=== PATIENT | male | born 1970 | race Caucasian/White ===

== ENCOUNTER 2023-09-06 15:26 | Inpatient (IN) | payer MEDICAID ==
[~2023-09-06] VITALS: Ht 167.6 cm; Wt 74.4 kg
[2023-09-06 16:13] LABS: BASOPHILS % (AUTO) 0.5 % (0.0-2.0); EOSINOPHILS % (AUTO) 0.2 % (0.0-6.0); HEMATOCRIT 31 % (39-51); HEMOGLOBIN 9.8 g/dL (13.5-17.5); LYMPHOCYTES # (AUTO) 0.4 K/uL (0.8-4.8); LYMPHOCYTES % (AUTO) 18.6 % (20.0-44.0); MEAN CORPUSCULAR HEMOGLOBIN 27 PG (26.0-33.0); MEAN CORPUSCULAR HGB CONC 32 g/dl (31.0-36.0); MEAN CORPUSCULAR VOLUME 84 fL (80-96); MONOCYTES % (AUTO) 1.1 % (2.0-12.0); NEUTROPHILS # (AUTO) 1.8 K/uL (1.8-8.9); NEUTROPHILS % (AUTO) 79.6 % (43.0-81.0); PLATELET COUNT (AUTO) 316 K/uL (150-450); RED BLOOD CELL COUNT(AUTO) 3.66 MIL/uL (4.5-6.0); RED CELL DISTRIBUTION WIDTH 16.6 % (11.5-15.0); WHITE BLOOD COUNT (AUTO) 2.2 K/uL (4.3-11.0)
[2023-09-06 16:21] LABS: CALCIUM, SERUM 9.9 mg/dL (8.5-10.1); CARBON DIOXIDE 23 mmol/L (21-32); CHLORIDE 101 mmol/L (98-107); CREATININE 1.2 mg/dL (0.6-1.3); GLUCOSE 141 mg/dL (74-106); POTASSIUM 4.3 mmol/L (3.5-5.1); SODIUM SERUM 136 mmol/L (136-145); UREA NITROGEN, BLOOD 66 mg/dL (7-18)
[2023-09-06] MEDS ORDERED: CEFEPIME 2 GM in IV D5W 50 ML IV ONE (17:00)
[2023-09-06] MEDS ORDERED: VANCOMYCIN 1 GM in IV D5W 250 ML IV ONE (17:00)
[2023-09-06] MEDS ORDERED: IV NS 0.9% 1,000 ML BAG IV ONE ×2 (17:00→18:30)
[2023-09-06] MEDS ORDERED: IOHEXOL-350 100 ML VIAL IV ONE (17:14)
[2023-09-06] MEDS ORDERED: IV NS 0.9% 250 ML IV ONE ×2 (17:15→21:30)
[2023-09-06] MEDS ORDERED: CT SWABBABLE VALVE TRANS SET 1 EA INFUS.SET MC ONE (17:15)
[2023-09-06] MEDS ORDERED: ACETAMINOPHEN 650 MG/SUPP.RECT RC ONE ×2 (17:26→18:00)
[2023-09-06 17:52] LABS: ALANINE AMINOTRANSFERASE 51 U/L (12-78); ALBUMIN 2.3 g/dL (3.4-5.0); ALKALINE PHOSPHATASE 290 U/L (46-116); ASPARTATE AMINOTRANSFERASE 51 U/L (15-37); BILIRUBIN,DIRECT 0.2 mg/dL (0.0-0.2); BILIRUBIN,TOTAL 0.2 mg/dL (0.2-1.0); TOTAL PROTEIN, SERUM 8.1 g/dL (6.4-8.2)
[2023-09-06 18:10] LABS: INR 1.17 (0.91-1.10); PARTIAL THROMBOPLASTIN TIME 25.6 SEC (24.3-34.3); PROTHROMBIN TIME 12.3 SECS (9.2-11.1)
[2023-09-06 18:11] LABS: ANISOCYTOSIS 1+; BAND % (MANUAL) 4 % (0.0-5.0); EOSINOPHILS % (MANUAL) 2 % (0-4); LYMPHOCYTES % (MANUAL) 22 % (16-48); MONOCYTES % (MANUAL) 4 % (0-11.0); NEUTROPHILS % (MANUAL) 68 (42-76); PLATELET ESTIMATE ADEQUATE; ROULEAUX 1+
[2023-09-06 18:13] LABS: LACTIC ACID 4.6 mmol/L (0.4-2.0)
[2023-09-06] MEDS ORDERED: IBUP-1957 PO (18:34)
[2023-09-06] MEDS ORDERED: BISA10SU11 RC (18:34)
[2023-09-06] MEDS ORDERED: DULO30CA2 PO (18:34)
[2023-09-06] MEDS ORDERED: ASPI-1169 PO (18:34)
[2023-09-06] MEDS ORDERED: MELA3TAB41 PO (18:34)
[2023-09-06] MEDS ORDERED: POLY17PO4 PO (18:34)
[2023-09-06] MEDS ORDERED: ASCO500T21 PO (18:34)
[2023-09-06] MEDS ORDERED: LIDO30AD10 TP (18:34)
[2023-09-06] MEDS ORDERED: GABA300C PO (18:34)
[2023-09-06] MEDS ORDERED: LOSA25TA27 PO (18:34)
[2023-09-06] MEDS ORDERED: ACET-73 PO (18:34)
[2023-09-06] MEDS ORDERED: MAGN400O6 PO (18:34)
[2023-09-06] MEDS ORDERED: FERR325T23 PO (18:34)
[2023-09-06] MEDS ORDERED: BACL10TA PO (18:34)
[2023-09-06] MEDS ORDERED: GABA-536 PO (18:34)
[2023-09-06] MEDS ORDERED: TOPI25TA49 PO (18:34)
[2023-09-06] MEDS ORDERED: AMIN30LI66 PO (18:34)
[2023-09-06] MEDS ORDERED: MULT-213 PO (18:34)
[2023-09-06] MEDS ORDERED: NUTR1PAC14 PO (18:34)
[2023-09-06] MEDS ORDERED: PANT40TA49 PO (18:34)
[2023-09-06] MEDS ORDERED: NA P133E RC (18:34)
[2023-09-06] MEDS ORDERED: MIRT-90 PO (18:34)
[2023-09-06] MEDS ORDERED: SENN-261 PO (18:34)
[2023-09-06] MEDS ORDERED: ACET-868 PO (18:34)
[2023-09-06] MEDS ORDERED: BLOO-668 IN (18:35)
[2023-09-06] MEDS ORDERED: Z GUARD REMEDY 4 OZ OINT TP PRN (19:30)
[2023-09-06] MEDS ORDERED: MAGNESIUM HYDROXIDE 30 ML UDC PO PRN ×2 (19:30→20:00)
[2023-09-06] MEDS ORDERED: ONDANSETRON HCL/PF 4 MG/2 ML VIAL IVP PRN (19:30)
[2023-09-06] MEDS ORDERED: MAG HYDROX/AL HYDROX/SIMETH 30 ML UDC PO PRN (19:30)
[2023-09-06] MEDS ORDERED: ZOLPIDEM TARTRATE 5 MG TABLET PO PRN (19:30)
[2023-09-06] MEDS ORDERED: ACETAMINOPHEN 325 MG TABLET PO PRN ×2 (19:30→20:00)
[2023-09-06 20:00] VITALS: BP 91/55; TEMP 97; O2SAT 100
[2023-09-06] MEDS ORDERED: NA PHOS,M-B/NA PHOS,DI-BA 1 EA ENEMA RC PRN (20:00)
[2023-09-06] MEDS ORDERED: BISACODYL SUPP (10 MG) 10 MG/SUPP.RECT SUPP.RECT RC PRN (20:00)
[2023-09-06] MEDS ORDERED: IBUPROFEN 400 MG TABLET PO PRN (20:00)
[2023-09-06] MEDS ORDERED: DEXTROSE 50%-WATER 50 ML DISP.SYRIN IV PRN (20:00)
[2023-09-06] MEDS: IV 1/2NS 1000 ML 1,000 ML IV PRN (20:22)
[2023-09-06] MEDS: ENOXAPARIN SODIUM 40 MG/0.4 ML DISP.SYRIN SQ SCH (20:22)
[2023-09-06 20:23] LABS: BILIRUBIN,URINE NEGATIVE (NEGATIVE); BLOOD, URINE 2+ Ery/uL (NEGATIVE); COLOR,URINE YELLOW (YELLOW); KETONES,URINE NEGATIVE (NEGATIVE); LEUKOCYTE ESTERASE ,URINE 2+ (NEGATIVE); NITRITE, URINE POSITIVE (NEGATIVE); PH,URINE 7.5 (5.0-8.0); PROTEIN,URINE 2+ mg/dl (NEGATIVE); UGLUCOSE NEGATIVE (NEGATIVE); UROBILINOGEN,URINE 0.2 EU/dL (0.2)
[2023-09-06 20:24] LABS: APPEARANCE,URINE SLIGHTLY CLOUDY (CLEAR)
[2023-09-06 20:35] LABS: ADD URINE CULTURE YES; BACTERIA,URINE 4+ /HPF (None Seen); RBC,URINE 21-50 /HPF (0-2); SQUAMOUS EPITHELIAL CELL,UR 0-2 /HPF (None Seen); WBC,URINE 21-50 /HPF (0-3)
[2023-09-06 20:36] LABS: CALCIUM OXALATE CRYSTALS,UR Few /HPF (None Seen)
[2023-09-06] MEDS: MIRTAZAPINE 15 MG TABLET PO SCH (21:59)
[2023-09-06] MEDS: GABAPENTIN 400 MG CAPSULE PO SCH (21:59)
[2023-09-06] MEDS: SENNOSIDES 8.6 MG TABLET PO SCH (21:59)
[2023-09-06] MEDS: BLOOD SUGAR DIAGNOSTIC 1 EACH STRIP VI SCH (22:13)
[2023-09-06] MEDS: *INSULIN REGULAR(HUMULIN R)HUM 100 UNIT/ML VIAL SQ PRN (22:19)
[2023-09-06] MEDS ORDERED: IV NS 0.9% 500 ML IV ONE (23:30)
[2023-09-06] MEDS ORDERED: ALBUMIN 25% 25 GM in PREMIX 1 EA IV ONE (23:30)
[2023-09-07] VITALS: BP 79/55; TEMP 98.2; O2SAT 99
[2023-09-07] MEDS ORDERED: ALBUMIN 25% 100 ML IV ONE (00:24)
[2023-09-07 04:00] VITALS: BP 119/58; TEMP 97.1; O2SAT 100
[2023-09-07] MEDS: VANCOMYCIN 0.75 GM in IV D5W 250 ML IV SCH ×2 (05:31→16:22)
[2023-09-07] MEDS: CEFEPIME 2 GM in IV D5W 100 ML IV SCH ×2 (06:13→18:01)
[2023-09-07 07:20] LABS: BASOPHILS # (AUTO) 0.1 K/uL (0.0-0.2); BASOPHILS % (AUTO) 0.2 % (0.0-2.0); HEMATOCRIT 24 % (39-51); HEMOGLOBIN 7.7 g/dL (13.5-17.5); LYMPHOCYTES # (AUTO) 2.3 K/uL (0.8-4.8); LYMPHOCYTES % (AUTO) 6.6 % (20.0-44.0); MEAN CORPUSCULAR HEMOGLOBIN 26 PG (26.0-33.0); MEAN CORPUSCULAR HGB CONC 32 g/dl (31.0-36.0); MEAN CORPUSCULAR VOLUME 83 fL (80-96); MONOCYTES # (AUTO) 1.5 K/uL (0.1-1.30); MONOCYTES % (AUTO) 4.2 % (2.0-12.0); NEUTROPHILS # (AUTO) 31.1 K/uL (1.8-8.9); PLATELET COUNT (AUTO) 254 K/uL (150-450); RED BLOOD CELL COUNT(AUTO) 2.92 MIL/uL (4.5-6.0); RED CELL DISTRIBUTION WIDTH 16.7 % (11.5-15.0)
[2023-09-07] MEDS: BLOOD SUGAR DIAGNOSTIC 1 EACH STRIP VI SCH ×4 (07:26→22:25)
[2023-09-07] MEDS: PANTOPRAZOLE 40 MG TABLET.DR PO SCH (07:26)
[2023-09-07 07:32] LABS: CALCIUM, SERUM 8.4 mg/dL (8.5-10.1); CREATININE 1.1 mg/dL (0.6-1.3); MAGNESIUM 1.6 mg/dL (1.8-2.4); PHOSPHORUS 3.6 mg/dL (2.5-4.9); POTASSIUM 3.7 mmol/L (3.5-5.1)
[2023-09-07 08:00] VITALS: BP 91/60; TEMP 98.4; O2SAT 100
[2023-09-07] MEDS: DULOXETINE HCL 30 MG CAPSULE.DR PO SCH (09:00)
[2023-09-07] MEDS: ASCORBIC ACID 500 MG TABLET PO SCH ×2 (09:00→16:22)
[2023-09-07] MEDS: MULTIVIT W/MINERALS 1 TAB TABLET PO SCH (09:00)
[2023-09-07] MEDS: FERROUS SULFATE (325 MG) 325 MG/TAB TABLET PO SCH (09:00)
[2023-09-07] MEDS: GABAPENTIN 300 MG CAPSULE PO SCH ×2 (09:00→16:22)
[2023-09-07] MEDS: ASPIRIN 81 MG TAB.CHEW PO SCH (09:00)
[2023-09-07] MEDS: LIDOCAINE 5% (PATCH) 1 EA PATCH TP SCH (09:00)
[2023-09-07] MEDS: TOPIRAMATE 25 MG TABLET PO SCH (09:00)
[2023-09-07] MEDS: BACLOFEN (10 MG) 10 MG TABLET PO SCH ×3 (09:01→16:22)
[2023-09-07] MEDS: ARGININE/GLUTAMINE/CALCIUM BMB 1 EACH POWD.PACK PO SCH ×2 (09:01→16:22)
[2023-09-07] MEDS: POLYETHYLENE GLYCOL 3350 17 GM POWD.PACK PO SCH (09:01)
[2023-09-07] MEDS: PROSOURCE / PROSTAT (PYXIS) 30 ML UDC PO SCH ×3 (09:01→16:22)
[2023-09-07 09:44] LABS: ANISOCYTOSIS 1+; BAND % (MANUAL) 6 % (0.0-5.0); LYMPHOCYTES % (MANUAL) 7 % (16-48); MONOCYTES % (MANUAL) 3 % (0-11.0); NEUTROPHILS % (MANUAL) 84 (42-76); PLATELET ESTIMATE ADEQUATE
[2023-09-07] MEDS ORDERED: MAGNESIUM OXIDE 400 MG TABLET PO ONE (10:30)
[2023-09-07 12:00] VITALS: BP 75/54; TEMP 98.5; O2SAT 100
[2023-09-07] MEDS: DAKINS QUARTER STRENGTH (0.125%) 480 ML BOTTLE TOP SCH (12:39)
[2023-09-07 16:00] VITALS: BP 80/45; TEMP 98.6; O2SAT 100
[2023-09-07] MEDS: GLUCERNA SHAKE 237 ML CAN PO SCH (16:31)
[2023-09-07] MEDS: INSULIN REGULAR, HUMAN 100 UNIT/ML 3 ML VIAL SQ PRN (17:17)
[2023-09-07 20:00] VITALS: BP 108/70; TEMP 97.8; O2SAT 99
[2023-09-07] MEDS: ENOXAPARIN SODIUM 40 MG/0.4 ML DISP.SYRIN SQ SCH (21:00)
[2023-09-07] MEDS: MIRTAZAPINE 15 MG TABLET PO SCH (21:35)
[2023-09-07] MEDS: SENNOSIDES 8.6 MG TABLET PO SCH (21:36)
[2023-09-07] MEDS: METRONIDAZOLE 500 MG TABLET PO SCH (21:36)
[2023-09-07] MEDS: GABAPENTIN 400 MG CAPSULE PO SCH (21:36)
[2023-09-07] MEDS: *INSULIN REGULAR(HUMULIN R)HUM 100 UNIT/ML VIAL SQ PRN (22:27)
[2023-09-08 04:00] VITALS: BP_SYST 119; BP_SYST 96; BP_DIAS 65; BP_DIAS 79; TEMP 97.6; TEMP 97.8; O2SAT 100
[2023-09-08] MEDS: VANCOMYCIN 0.75 GM in IV D5W 250 ML IV SCH ×2 (04:35→16:08)
[2023-09-08] MEDS: IV 1/2NS 1000 ML 1,000 ML IV PRN (04:45)
[2023-09-08] MEDS: METRONIDAZOLE 500 MG TABLET PO SCH ×3 (05:43→21:34)
[2023-09-08] MEDS: CEFEPIME 2 GM in IV D5W 100 ML IV SCH ×2 (05:43→17:16)
[2023-09-08] MEDS: BLOOD SUGAR DIAGNOSTIC 1 EACH STRIP VI SCH ×4 (07:19→22:09)
[2023-09-08] MEDS: PANTOPRAZOLE 40 MG TABLET.DR PO SCH (07:19)
[2023-09-08 08:00] VITALS: BP 109/82; TEMP 97.5; O2SAT 100
[2023-09-08 08:10] LABS: BASOPHILS # (AUTO) 0.1 K/uL (0.0-0.2); BASOPHILS % (AUTO) 0.3 % (0.0-2.0); EOSINOPHILS # (AUTO) 0.3 K/uL (0.0-0.7); EOSINOPHILS % (AUTO) 1.5 % (0.0-6.0); HEMATOCRIT 25 % (39-51); HEMOGLOBIN 7.9 g/dL (13.5-17.5); LYMPHOCYTES # (AUTO) 2.4 K/uL (0.8-4.8); LYMPHOCYTES % (AUTO) 11.3 % (20.0-44.0); MEAN CORPUSCULAR HEMOGLOBIN 26 PG (26.0-33.0); MEAN CORPUSCULAR HGB CONC 31 g/dl (31.0-36.0); MEAN CORPUSCULAR VOLUME 84 fL (80-96); MONOCYTES # (AUTO) 1.2 K/uL (0.1-1.30); MONOCYTES % (AUTO) 5.6 % (2.0-12.0); NEUTROPHILS # (AUTO) 17.6 K/uL (1.8-8.9); NEUTROPHILS % (AUTO) 81.3 % (43.0-81.0); PLATELET COUNT (AUTO) 242 K/uL (150-450); RED BLOOD CELL COUNT(AUTO) 3.01 MIL/uL (4.5-6.0); RED CELL DISTRIBUTION WIDTH 16.6 % (11.5-15.0); WHITE BLOOD COUNT (AUTO) 21.6 K/uL (4.3-11.0)
[2023-09-08 08:30] LABS: CALCIUM, SERUM 8.7 mg/dL (8.5-10.1); CREATININE 0.7 mg/dL (0.6-1.3); MAGNESIUM 2.1 mg/dL (1.8-2.4); PHOSPHORUS 2.9 mg/dL (2.5-4.9); POTASSIUM 3.8 mmol/L (3.5-5.1)
[2023-09-08] MEDS: GLUCERNA SHAKE 237 ML CAN PO SCH ×3 (08:49→16:19)
[2023-09-08] MEDS: GABAPENTIN 300 MG CAPSULE PO SCH ×2 (08:54→16:08)
[2023-09-08] MEDS: TOPIRAMATE 25 MG TABLET PO SCH (08:54)
[2023-09-08] MEDS: FERROUS SULFATE (325 MG) 325 MG/TAB TABLET PO SCH (08:54)
[2023-09-08] MEDS: DULOXETINE HCL 30 MG CAPSULE.DR PO SCH (08:54)
[2023-09-08] MEDS: ASCORBIC ACID 500 MG TABLET PO SCH ×2 (08:54→16:08)
[2023-09-08] MEDS: MULTIVIT W/MINERALS 1 TAB TABLET PO SCH (08:55)
[2023-09-08] MEDS: LIDOCAINE 5% (PATCH) 1 EA PATCH TP SCH (08:55)
[2023-09-08] MEDS: BACLOFEN (10 MG) 10 MG TABLET PO SCH ×3 (08:56→16:08)
[2023-09-08] MEDS: PROSOURCE / PROSTAT (PYXIS) 30 ML UDC PO SCH ×3 (08:56→16:08)
[2023-09-08] MEDS: ARGININE/GLUTAMINE/CALCIUM BMB 1 EACH POWD.PACK PO SCH ×2 (08:56→16:08)
[2023-09-08] MEDS: ASPIRIN 81 MG TAB.CHEW PO SCH (08:56)
[2023-09-08] MEDS: POLYETHYLENE GLYCOL 3350 17 GM POWD.PACK PO SCH (08:59)
[2023-09-08] MEDS: DAKINS QUARTER STRENGTH (0.125%) 480 ML BOTTLE TOP SCH (08:59)
[2023-09-08 10:59] LABS: LYMPHOCYTES % (MANUAL) 11 % (16-48); MONOCYTES % (MANUAL) 4 % (0-11.0); NEUTROPHILS % (MANUAL) 85 (42-76); PLATELET ESTIMATE ADEQUATE
[2023-09-08 12:00] VITALS: BP 107/75; TEMP 97.3; O2SAT 100
[2023-09-08] MEDS: *INSULIN REGULAR(HUMULIN R)HUM 100 UNIT/ML VIAL SQ PRN ×3 (12:23→22:10)
[2023-09-08] MEDS ORDERED: SILVER NITRATE APPLICATOR 1 EA BOX TP STA (12:54)
[2023-09-08] MEDS ORDERED: LIDOCAINE 1%-EPI 1:100,000 20 ML VIAL TP STA (12:54)
[2023-09-08 16:00] VITALS: BP 106/78; TEMP 97.9; O2SAT 100
[2023-09-08 20:00] VITALS: BP 120/85; TEMP 97.7; O2SAT 99
[2023-09-08] MEDS: SENNOSIDES 8.6 MG TABLET PO SCH (21:34)
[2023-09-08] MEDS: MIRTAZAPINE 15 MG TABLET PO SCH (21:34)
[2023-09-08] MEDS: GABAPENTIN 400 MG CAPSULE PO SCH (21:34)
[2023-09-08] MEDS: ENOXAPARIN SODIUM 40 MG/0.4 ML DISP.SYRIN SQ SCH (21:55)
[2023-09-09] VITALS: BP 129/88; TEMP 98.2; O2SAT 99
[2023-09-09] MEDS: IV 1/2NS 1000 ML 1,000 ML IV PRN ×2 (01:11→16:50)
[2023-09-09 04:00] VITALS: BP 140/92; TEMP 97.5; O2SAT 98
[2023-09-09] MEDS: VANCOMYCIN 0.75 GM in IV D5W 250 ML IV SCH ×2 (04:46→17:00)
[2023-09-09] MEDS: METRONIDAZOLE 500 MG TABLET PO SCH ×3 (05:48→21:23)
[2023-09-09 05:49] LABS: BASOPHILS # (AUTO) 0.1 K/uL (0.0-0.2); BASOPHILS % (AUTO) 0.6 % (0.0-2.0); EOSINOPHILS # (AUTO) 0.3 K/uL (0.0-0.7); EOSINOPHILS % (AUTO) 2.3 % (0.0-6.0); HEMATOCRIT 27 % (39-51); HEMOGLOBIN 8.8 g/dL (13.5-17.5); LYMPHOCYTES # (AUTO) 2.3 K/uL (0.8-4.8); LYMPHOCYTES % (AUTO) 17.7 % (20.0-44.0); MEAN CORPUSCULAR HEMOGLOBIN 27 PG (26.0-33.0); MEAN CORPUSCULAR HGB CONC 32 g/dl (31.0-36.0); MEAN CORPUSCULAR VOLUME 82 fL (80-96); MONOCYTES # (AUTO) 0.8 K/uL (0.1-1.30); NEUTROPHILS # (AUTO) 9.6 K/uL (1.8-8.9); NEUTROPHILS % (AUTO) 73.4 % (43.0-81.0); PLATELET COUNT (AUTO) 256 K/uL (150-450); RED BLOOD CELL COUNT(AUTO) 3.29 MIL/uL (4.5-6.0); RED CELL DISTRIBUTION WIDTH 15.9 % (11.5-15.0)
[2023-09-09 06:08] LABS: CALCIUM, SERUM 9.1 mg/dL (8.5-10.1); CREATININE 0.6 mg/dL (0.6-1.3); POTASSIUM 3.9 mmol/L (3.5-5.1)
[2023-09-09] MEDS: CEFEPIME 2 GM in IV D5W 100 ML IV SCH ×3 (06:19→21:23)
[2023-09-09] MEDS: PANTOPRAZOLE 40 MG TABLET.DR PO SCH (07:17)
[2023-09-09] MEDS: GLUCERNA SHAKE 237 ML CAN PO SCH ×3 (07:32→17:00)
[2023-09-09] MEDS: BLOOD SUGAR DIAGNOSTIC 1 EACH STRIP VI SCH ×4 (07:54→21:52)
[2023-09-09 08:00] VITALS: BP 117/79; TEMP 97.7; O2SAT 98
[2023-09-09] MEDS: PROSOURCE / PROSTAT (PYXIS) 30 ML UDC PO SCH ×3 (08:46→16:55)
[2023-09-09] MEDS: DAKINS QUARTER STRENGTH (0.125%) 480 ML BOTTLE TOP SCH (08:46)
[2023-09-09] MEDS: ARGININE/GLUTAMINE/CALCIUM BMB 1 EACH POWD.PACK PO SCH ×2 (08:46→16:55)
[2023-09-09] MEDS: ASPIRIN 81 MG TAB.CHEW PO SCH (09:13)
[2023-09-09] MEDS: GABAPENTIN 300 MG CAPSULE PO SCH ×2 (09:13→16:54)
[2023-09-09] MEDS: BACLOFEN (10 MG) 10 MG TABLET PO SCH ×3 (09:14→16:55)
[2023-09-09] MEDS: MULTIVIT W/MINERALS 1 TAB TABLET PO SCH (09:14)
[2023-09-09] MEDS: DULOXETINE HCL 30 MG CAPSULE.DR PO SCH (09:14)
[2023-09-09] MEDS: ASCORBIC ACID 500 MG TABLET PO SCH ×2 (09:14→16:54)
[2023-09-09] MEDS: POLYETHYLENE GLYCOL 3350 17 GM POWD.PACK PO SCH (09:14)
[2023-09-09] MEDS: TOPIRAMATE 25 MG TABLET PO SCH (09:14)
[2023-09-09] MEDS: FERROUS SULFATE (325 MG) 325 MG/TAB TABLET PO SCH (09:15)
[2023-09-09] MEDS: LIDOCAINE 5% (PATCH) 1 EA PATCH TP SCH (09:15)
[2023-09-09 12:00] VITALS: BP 104/74; TEMP 97.9; O2SAT 99
[2023-09-09 16:00] VITALS: BP 111/74; TEMP 98.2; O2SAT 99
[2023-09-09] MEDS: INSULIN REGULAR, HUMAN 100 UNIT/ML 3 ML VIAL SQ PRN (17:22)
[2023-09-09 20:00] VITALS: BP 127/98; TEMP 98.2; O2SAT 99
[2023-09-09] MEDS: GABAPENTIN 400 MG CAPSULE PO SCH (21:23)
[2023-09-09] MEDS: MIRTAZAPINE 15 MG TABLET PO SCH (21:23)
[2023-09-09] MEDS: ENOXAPARIN SODIUM 40 MG/0.4 ML DISP.SYRIN SQ SCH (21:31)
[2023-09-09] MEDS: SENNOSIDES 8.6 MG TABLET PO SCH (21:32)
[2023-09-09] MEDS: *INSULIN REGULAR(HUMULIN R)HUM 100 UNIT/ML VIAL SQ PRN (21:52)
[2023-09-10] VITALS: BP 137/93; TEMP 97.5; O2SAT 100
[2023-09-10 04:00] VITALS: BP 134/96; TEMP 97.7; O2SAT 99
[2023-09-10] MEDS: METRONIDAZOLE 500 MG TABLET PO SCH ×3 (04:02→21:43)
[2023-09-10] MEDS: VANCOMYCIN 0.75 GM in IV D5W 250 ML IV SCH ×2 (04:02→16:43)
[2023-09-10] MEDS: CEFEPIME 2 GM in IV D5W 100 ML IV SCH ×3 (04:02→20:59)
[2023-09-10 07:03] LABS: BASOPHILS # (AUTO) 0.1 K/uL (0.0-0.2); EOSINOPHILS # (AUTO) 0.3 K/uL (0.0-0.7); EOSINOPHILS % (AUTO) 2.3 % (0.0-6.0); HEMATOCRIT 27 % (39-51); HEMOGLOBIN 8.8 g/dL (13.5-17.5); LYMPHOCYTES # (AUTO) 2.5 K/uL (0.8-4.8); LYMPHOCYTES % (AUTO) 23.4 % (20.0-44.0); MEAN CORPUSCULAR HEMOGLOBIN 27 PG (26.0-33.0); MEAN CORPUSCULAR HGB CONC 33 g/dl (31.0-36.0); MEAN CORPUSCULAR VOLUME 82 fL (80-96); MONOCYTES # (AUTO) 0.6 K/uL (0.1-1.30); MONOCYTES % (AUTO) 5.8 % (2.0-12.0); NEUTROPHILS # (AUTO) 7.3 K/uL (1.8-8.9); NEUTROPHILS % (AUTO) 67.5 % (43.0-81.0); PLATELET COUNT (AUTO) 297 K/uL (150-450); RED BLOOD CELL COUNT(AUTO) 3.28 MIL/uL (4.5-6.0); RED CELL DISTRIBUTION WIDTH 16.1 % (11.5-15.0); WHITE BLOOD COUNT (AUTO) 10.8 K/uL (4.3-11.0)
[2023-09-10 07:34] LABS: CREATININE 0.5 mg/dL (0.6-1.3); MAGNESIUM 1.9 mg/dL (1.8-2.4); PHOSPHORUS 1.9 mg/dL (2.5-4.9); POTASSIUM 3.7 mmol/L (3.5-5.1)
[2023-09-10] MEDS: BLOOD SUGAR DIAGNOSTIC 1 EACH STRIP VI SCH ×4 (07:34→22:00)
[2023-09-10] MEDS: PANTOPRAZOLE 40 MG TABLET.DR PO SCH (07:36)
[2023-09-10] MEDS: GLUCERNA SHAKE 237 ML CAN PO SCH ×3 (07:36→16:43)
[2023-09-10 07:48] LABS: CALCIUM, SERUM 8.6 mg/dL (8.5-10.1)
[2023-09-10 08:00] VITALS: BP 124/85; TEMP 97.7; O2SAT 100
[2023-09-10] MEDS: ARGININE/GLUTAMINE/CALCIUM BMB 1 EACH POWD.PACK PO SCH ×2 (08:15→16:41)
[2023-09-10] MEDS: PROSOURCE / PROSTAT (PYXIS) 30 ML UDC PO SCH ×3 (08:15→16:41)
[2023-09-10] MEDS: DAKINS QUARTER STRENGTH (0.125%) 480 ML BOTTLE TOP SCH (08:15)
[2023-09-10] MEDS: ASPIRIN 81 MG TAB.CHEW PO SCH (08:56)
[2023-09-10] MEDS: FERROUS SULFATE (325 MG) 325 MG/TAB TABLET PO SCH (08:56)
[2023-09-10] MEDS: POLYETHYLENE GLYCOL 3350 17 GM POWD.PACK PO SCH (08:56)
[2023-09-10] MEDS: TOPIRAMATE 25 MG TABLET PO SCH (08:57)
[2023-09-10] MEDS: DULOXETINE HCL 30 MG CAPSULE.DR PO SCH (08:57)
[2023-09-10] MEDS: BACLOFEN (10 MG) 10 MG TABLET PO SCH ×3 (08:57→16:41)
[2023-09-10] MEDS: ASCORBIC ACID 500 MG TABLET PO SCH ×2 (08:57→16:41)
[2023-09-10] MEDS: MULTIVIT W/MINERALS 1 TAB TABLET PO SCH (08:57)
[2023-09-10] MEDS: GABAPENTIN 300 MG CAPSULE PO SCH ×2 (08:57→16:41)
[2023-09-10] MEDS: LIDOCAINE 5% (PATCH) 1 EA PATCH TP SCH (08:58)
[2023-09-10 12:00] VITALS: BP 122/89; TEMP 97.5; O2SAT 99
[2023-09-10] MEDS: IV 1/2NS 1000 ML 1,000 ML IV PRN (12:42)
[2023-09-10 16:00] VITALS: BP 125/84; TEMP 97.6; O2SAT 98
[2023-09-10] MEDS: INSULIN REGULAR, HUMAN 100 UNIT/ML 3 ML VIAL SQ PRN (17:14)
[2023-09-10] MEDS ORDERED: K PHOS NEUTRAL 250 MG TABLET PO ONE (18:00)
[2023-09-10 20:00] VITALS: BP 141/90; TEMP 98.1; O2SAT 98
[2023-09-10] MEDS: ENOXAPARIN SODIUM 40 MG/0.4 ML DISP.SYRIN SQ SCH (21:40)
[2023-09-10] MEDS: GABAPENTIN 400 MG CAPSULE PO SCH (21:44)
[2023-09-10] MEDS: SENNOSIDES 8.6 MG TABLET PO SCH (21:46)
[2023-09-10] MEDS: *INSULIN REGULAR(HUMULIN R)HUM 100 UNIT/ML VIAL SQ PRN (23:54)
[2023-09-11] VITALS: BP 125/89; TEMP 99; O2SAT 98
[2023-09-11] MEDS: *INSULIN REGULAR(HUMULIN R)HUM 100 UNIT/ML VIAL SQ PRN ×2 (00:09→23:35)
[2023-09-11 04:00] VITALS: BP 121/85; TEMP 97.9; O2SAT 98
[2023-09-11] MEDS: METRONIDAZOLE 500 MG TABLET PO SCH ×3 (05:22→21:23)
[2023-09-11] MEDS: IV 1/2NS 1000 ML 1,000 ML IV PRN ×2 (05:24→23:38)
[2023-09-11] MEDS: CEFEPIME 2 GM in IV D5W 100 ML IV SCH ×3 (05:26→21:20)
[2023-09-11] MEDS: MIRTAZAPINE 15 MG TABLET PO SCH ×2 (05:58→21:25)
[2023-09-11] MEDS: BLOOD SUGAR DIAGNOSTIC 1 EACH STRIP VI SCH ×5 (07:30→22:56)
[2023-09-11 08:00] VITALS: BP 113/82; TEMP 98.2; O2SAT 100
[2023-09-11] MEDS: POLYETHYLENE GLYCOL 3350 17 GM POWD.PACK PO SCH (08:59)
[2023-09-11] MEDS: FERROUS SULFATE (325 MG) 325 MG/TAB TABLET PO SCH (08:59)
[2023-09-11] MEDS: LIDOCAINE 5% (PATCH) 1 EA PATCH TP SCH (08:59)
[2023-09-11] MEDS: BACLOFEN (10 MG) 10 MG TABLET PO SCH ×3 (08:59→17:36)
[2023-09-11] MEDS: DULOXETINE HCL 30 MG CAPSULE.DR PO SCH (08:59)
[2023-09-11] MEDS: MULTIVIT W/MINERALS 1 TAB TABLET PO SCH (08:59)
[2023-09-11] MEDS: ASCORBIC ACID 500 MG TABLET PO SCH ×2 (08:59→17:36)
[2023-09-11] MEDS: TOPIRAMATE 25 MG TABLET PO SCH (09:00)
[2023-09-11] MEDS: ASPIRIN 81 MG TAB.CHEW PO SCH (09:00)
[2023-09-11] MEDS: PANTOPRAZOLE 40 MG TABLET.DR PO SCH (09:00)
[2023-09-11] MEDS: GABAPENTIN 300 MG CAPSULE PO SCH ×2 (09:01→17:36)
[2023-09-11] MEDS: GLUCERNA SHAKE 237 ML CAN PO SCH ×3 (09:02→17:34)
[2023-09-11] MEDS: ARGININE/GLUTAMINE/CALCIUM BMB 1 EACH POWD.PACK PO SCH ×2 (09:02→17:34)
[2023-09-11] MEDS: DAKINS QUARTER STRENGTH (0.125%) 480 ML BOTTLE TOP SCH (09:03)
[2023-09-11] MEDS: PROSOURCE / PROSTAT (PYXIS) 30 ML UDC PO SCH ×3 (09:03→17:34)
[2023-09-11 09:57] LABS: CALCIUM, SERUM 8.9 mg/dL (8.5-10.1); CREATININE 0.5 mg/dL (0.6-1.3); MAGNESIUM 2.1 mg/dL (1.8-2.4); PHOSPHORUS 2.8 mg/dL (2.5-4.9); POTASSIUM 4.2 mmol/L (3.5-5.1)
[2023-09-11 10:39] LABS: BASOPHILS # (AUTO) 0.1 K/uL (0.0-0.2); BASOPHILS % (AUTO) 1.1 % (0.0-2.0); EOSINOPHILS # (AUTO) 0.2 K/uL (0.0-0.7); EOSINOPHILS % (AUTO) 2.1 % (0.0-6.0); HEMATOCRIT 26 % (39-51); HEMOGLOBIN 8.4 g/dL (13.5-17.5); LYMPHOCYTES % (AUTO) 25.8 % (20.0-44.0); MEAN CORPUSCULAR HEMOGLOBIN 26 PG (26.0-33.0); MEAN CORPUSCULAR HGB CONC 32 g/dl (31.0-36.0); MEAN CORPUSCULAR VOLUME 82 fL (80-96); MONOCYTES # (AUTO) 0.8 K/uL (0.1-1.30); MONOCYTES % (AUTO) 7.1 % (2.0-12.0); NEUTROPHILS # (AUTO) 7.3 K/uL (1.8-8.9); NEUTROPHILS % (AUTO) 63.9 % (43.0-81.0); PLATELET COUNT (AUTO) 336 K/uL (150-450); RED BLOOD CELL COUNT(AUTO) 3.18 MIL/uL (4.5-6.0); RED CELL DISTRIBUTION WIDTH 16.3 % (11.5-15.0); WHITE BLOOD COUNT (AUTO) 11.5 K/uL (4.3-11.0)
[2023-09-11 12:00] VITALS: BP 127/93; TEMP 97.2; O2SAT 100
[2023-09-11 16:00] VITALS: BP 131/88; TEMP 97.2; O2SAT 100
[2023-09-11] MEDS: VANCOMYCIN 0.75 GM in IV D5W 250 ML IV SCH (17:00)
[2023-09-11 20:00] VITALS: BP 152/95; TEMP 97.9; O2SAT 99
[2023-09-11] MEDS: GABAPENTIN 400 MG CAPSULE PO SCH (21:24)
[2023-09-11] MEDS: SENNOSIDES 8.6 MG TABLET PO SCH (21:26)
[2023-09-11] MEDS: ENOXAPARIN SODIUM 40 MG/0.4 ML DISP.SYRIN SQ SCH (21:30)
[2023-09-12] VITALS: BP 130/81; TEMP 98.6; O2SAT 100
[2023-09-12 04:00] VITALS: BP 128/89; TEMP 98.4; O2SAT 99
[2023-09-12] MEDS: METRONIDAZOLE 500 MG TABLET PO SCH ×3 (05:01→21:27)
[2023-09-12] MEDS: CEFEPIME 2 GM in IV D5W 100 ML IV SCH ×3 (05:03→21:26)
[2023-09-12] MEDS: VANCOMYCIN 0.75 GM in IV D5W 250 ML IV SCH (05:03)
[2023-09-12 06:21] LABS: BASOPHILS # (AUTO) 0.1 K/uL (0.0-0.2); EOSINOPHILS # (AUTO) 0.3 K/uL (0.0-0.7); EOSINOPHILS % (AUTO) 3.4 % (0.0-6.0); HEMATOCRIT 28 % (39-51); LYMPHOCYTES # (AUTO) 3.1 K/uL (0.8-4.8); LYMPHOCYTES % (AUTO) 31.5 % (20.0-44.0); MEAN CORPUSCULAR HEMOGLOBIN 27 PG (26.0-33.0); MEAN CORPUSCULAR HGB CONC 32 g/dl (31.0-36.0); MEAN CORPUSCULAR VOLUME 83 fL (80-96); MONOCYTES # (AUTO) 0.8 K/uL (0.1-1.30); MONOCYTES % (AUTO) 8.5 % (2.0-12.0); NEUTROPHILS # (AUTO) 5.5 K/uL (1.8-8.9); NEUTROPHILS % (AUTO) 55.6 % (43.0-81.0); PLATELET COUNT (AUTO) 386 K/uL (150-450); RED BLOOD CELL COUNT(AUTO) 3.37 MIL/uL (4.5-6.0); RED CELL DISTRIBUTION WIDTH 16.7 % (11.5-15.0); WHITE BLOOD COUNT (AUTO) 9.8 K/uL (4.3-11.0)
[2023-09-12 06:45] LABS: CALCIUM, SERUM 8.2 mg/dL (8.5-10.1); CREATININE 0.4 mg/dL (0.6-1.3); POTASSIUM 3.7 mmol/L (3.5-5.1)
[2023-09-12] MEDS: LIDOCAINE 5% (PATCH) 1 EA PATCH TP SCH (08:21)
[2023-09-12] MEDS: ASPIRIN 81 MG TAB.CHEW PO SCH (08:21)
[2023-09-12] MEDS: GABAPENTIN 300 MG CAPSULE PO SCH ×2 (08:21→17:20)
[2023-09-12] MEDS: FERROUS SULFATE (325 MG) 325 MG/TAB TABLET PO SCH (08:21)
[2023-09-12] MEDS: DULOXETINE HCL 30 MG CAPSULE.DR PO SCH (08:21)
[2023-09-12] MEDS: POLYETHYLENE GLYCOL 3350 17 GM POWD.PACK PO SCH (08:21)
[2023-09-12] MEDS: PANTOPRAZOLE 40 MG TABLET.DR PO SCH (08:21)
[2023-09-12] MEDS: MULTIVIT W/MINERALS 1 TAB TABLET PO SCH (08:21)
[2023-09-12] MEDS: BACLOFEN (10 MG) 10 MG TABLET PO SCH ×3 (08:21→17:20)
[2023-09-12] MEDS: DAKINS QUARTER STRENGTH (0.125%) 480 ML BOTTLE TOP SCH (08:22)
[2023-09-12] MEDS: TOPIRAMATE 25 MG TABLET PO SCH (08:22)
[2023-09-12] MEDS: ASCORBIC ACID 500 MG TABLET PO SCH ×2 (08:22→17:20)
[2023-09-12] MEDS: GLUCERNA SHAKE 237 ML CAN PO SCH ×3 (08:22→17:20)
[2023-09-12] MEDS: PROSOURCE / PROSTAT (PYXIS) 30 ML UDC PO SCH ×3 (08:22→17:19)
[2023-09-12] MEDS: ARGININE/GLUTAMINE/CALCIUM BMB 1 EACH POWD.PACK PO SCH ×2 (08:22→17:19)
[2023-09-12] MEDS: VANCOMYCIN 1 GM in IV D5W 250ml IV SCH ×2 (12:24→21:26)
[2023-09-12] MEDS: BLOOD SUGAR DIAGNOSTIC 1 EACH STRIP VI SCH ×3 (12:51→22:18)
[2023-09-12 16:25] VITALS: BP 157/77; TEMP 98.4; O2SAT 99
[2023-09-12 20:00] VITALS: BP 148/90; TEMP 98; O2SAT 96
[2023-09-12] MEDS: MIRTAZAPINE 15 MG TABLET PO SCH (21:27)
[2023-09-12] MEDS: SENNOSIDES 8.6 MG TABLET PO SCH (21:27)
[2023-09-12] MEDS: GABAPENTIN 400 MG CAPSULE PO SCH (21:27)
[2023-09-12] MEDS: ENOXAPARIN SODIUM 40 MG/0.4 ML DISP.SYRIN SQ SCH (21:28)
[2023-09-12] MEDS: INSULIN REGULAR, HUMAN 100 UNIT/ML 3 ML VIAL SQ PRN (22:16)
[2023-09-12] MEDS: IV 1/2NS 1000 ML 1,000 ML IV PRN (23:08)
[2023-09-13] VITALS: BP 147/92; TEMP 98.1; O2SAT 96
[2023-09-13 04:00] VITALS: BP 138/90; TEMP 98; O2SAT 98
[2023-09-13] MEDS: CEFEPIME 2 GM in IV D5W 100 ML IV SCH ×3 (04:21→20:37)
[2023-09-13] MEDS: METRONIDAZOLE 500 MG TABLET PO SCH ×2 (04:21→12:38)
[2023-09-13] MEDS: VANCOMYCIN 1 GM in IV D5W 250ml IV SCH ×2 (04:21→13:00)
[2023-09-13 07:03] LABS: BASOPHILS # (AUTO) 0.1 K/uL (0.0-0.2); BASOPHILS % (AUTO) 1.3 % (0.0-2.0); EOSINOPHILS # (AUTO) 0.3 K/uL (0.0-0.7); EOSINOPHILS % (AUTO) 2.9 % (0.0-6.0); HEMATOCRIT 30 % (39-51); HEMOGLOBIN 9.5 g/dL (13.5-17.5); LYMPHOCYTES # (AUTO) 3.5 K/uL (0.8-4.8); LYMPHOCYTES % (AUTO) 33.7 % (20.0-44.0); MEAN CORPUSCULAR HEMOGLOBIN 26 PG (26.0-33.0); MEAN CORPUSCULAR HGB CONC 32 g/dl (31.0-36.0); MEAN CORPUSCULAR VOLUME 82 fL (80-96); MONOCYTES # (AUTO) 0.8 K/uL (0.1-1.30); MONOCYTES % (AUTO) 7.6 % (2.0-12.0); NEUTROPHILS # (AUTO) 5.6 K/uL (1.8-8.9); NEUTROPHILS % (AUTO) 54.5 % (43.0-81.0); PLATELET COUNT (AUTO) 446 K/uL (150-450); RED BLOOD CELL COUNT(AUTO) 3.61 MIL/uL (4.5-6.0); RED CELL DISTRIBUTION WIDTH 16.5 % (11.5-15.0); WHITE BLOOD COUNT (AUTO) 10.3 K/uL (4.3-11.0)
[2023-09-13 07:37] LABS: CALCIUM, SERUM 8.8 mg/dL (8.5-10.1); CREATININE 0.5 mg/dL (0.6-1.3); MAGNESIUM 1.7 mg/dL (1.8-2.4); PHOSPHORUS 3.1 mg/dL (2.5-4.9); POTASSIUM 3.9 mmol/L (3.5-5.1)
[2023-09-13 08:00] VITALS: BP 128/85; TEMP 98.6; O2SAT 98
[2023-09-13] MEDS: BLOOD SUGAR DIAGNOSTIC 1 EACH STRIP VI SCH ×4 (08:01→22:04)
[2023-09-13] MEDS: GLUCERNA SHAKE 237 ML CAN PO SCH ×3 (08:18→17:11)
[2023-09-13] MEDS: BACLOFEN (10 MG) 10 MG TABLET PO SCH ×3 (09:19→17:42)
[2023-09-13] MEDS: PANTOPRAZOLE 40 MG TABLET.DR PO SCH (09:19)
[2023-09-13] MEDS: DULOXETINE HCL 30 MG CAPSULE.DR PO SCH (09:19)
[2023-09-13] MEDS: POLYETHYLENE GLYCOL 3350 17 GM POWD.PACK PO SCH (09:20)
[2023-09-13] MEDS: MULTIVIT W/MINERALS 1 TAB TABLET PO SCH (09:20)
[2023-09-13] MEDS: FERROUS SULFATE (325 MG) 325 MG/TAB TABLET PO SCH (09:20)
[2023-09-13] MEDS: GABAPENTIN 300 MG CAPSULE PO SCH ×2 (09:20→17:42)
[2023-09-13] MEDS: ASPIRIN 81 MG TAB.CHEW PO SCH (09:20)
[2023-09-13] MEDS: ASCORBIC ACID 500 MG TABLET PO SCH ×2 (09:20→17:43)
[2023-09-13] MEDS: TOPIRAMATE 25 MG TABLET PO SCH (09:20)
[2023-09-13] MEDS: LIDOCAINE 5% (PATCH) 1 EA PATCH TP SCH (09:21)
[2023-09-13] MEDS: PROSOURCE / PROSTAT (PYXIS) 30 ML UDC PO SCH ×3 (09:25→17:11)
[2023-09-13] MEDS: ARGININE/GLUTAMINE/CALCIUM BMB 1 EACH POWD.PACK PO SCH ×2 (09:25→17:11)
[2023-09-13] MEDS: DAKINS QUARTER STRENGTH (0.125%) 480 ML BOTTLE TOP SCH (09:32)
[2023-09-13] MEDS ORDERED: MAGNESIUM OXIDE 400 MG TABLET PO ONE (10:00)
[2023-09-13 12:00] VITALS: BP 125/89; TEMP 98.6
[2023-09-13 16:00] VITALS: BP 131/86; TEMP 98; O2SAT 99
[2023-09-13 20:00] VITALS: BP 128/84; TEMP 98.6; O2SAT 98
[2023-09-13] MEDS: GABAPENTIN 400 MG CAPSULE PO SCH (21:47)
[2023-09-13] MEDS: MIRTAZAPINE 15 MG TABLET PO SCH (21:47)
[2023-09-13] MEDS: SENNOSIDES 8.6 MG TABLET PO SCH (21:47)
[2023-09-13] MEDS: ENOXAPARIN SODIUM 40 MG/0.4 ML DISP.SYRIN SQ SCH (21:48)
[2023-09-13] MEDS: IV 1/2NS 1000 ML 1,000 ML IV PRN (23:51)
[2023-09-14] VITALS: BP 120/81; TEMP 98.6; O2SAT 98
[2023-09-14 04:00] VITALS: BP 130/81; TEMP 98.4; O2SAT 99
[2023-09-14] MEDS: CEFEPIME 2 GM in IV D5W 100 ML IV SCH ×2 (05:01→12:33)
[2023-09-14] MEDS: VANCOMYCIN 1 GM in IV D5W 250ml IV SCH ×2 (05:39→17:00)
[2023-09-14 06:47] LABS: BASOPHILS # (AUTO) 0.1 K/uL (0.0-0.2); BASOPHILS % (AUTO) 1.2 % (0.0-2.0); EOSINOPHILS # (AUTO) 0.4 K/uL (0.0-0.7); EOSINOPHILS % (AUTO) 3.6 % (0.0-6.0); HEMATOCRIT 28 % (39-51); LYMPHOCYTES # (AUTO) 3.9 K/uL (0.8-4.8); LYMPHOCYTES % (AUTO) 37.8 % (20.0-44.0); MEAN CORPUSCULAR HEMOGLOBIN 27 PG (26.0-33.0); MEAN CORPUSCULAR HGB CONC 32 g/dl (31.0-36.0); MEAN CORPUSCULAR VOLUME 83 fL (80-96); MONOCYTES # (AUTO) 0.8 K/uL (0.1-1.30); MONOCYTES % (AUTO) 7.5 % (2.0-12.0); NEUTROPHILS # (AUTO) 5.1 K/uL (1.8-8.9); NEUTROPHILS % (AUTO) 49.9 % (43.0-81.0); PLATELET COUNT (AUTO) 446 K/uL (150-450); RED BLOOD CELL COUNT(AUTO) 3.37 MIL/uL (4.5-6.0); RED CELL DISTRIBUTION WIDTH 16.9 % (11.5-15.0); WHITE BLOOD COUNT (AUTO) 10.2 K/uL (4.3-11.0)
[2023-09-14 07:06] LABS: CALCIUM, SERUM 8.6 mg/dL (8.5-10.1); CREATININE 0.4 mg/dL (0.6-1.3); MAGNESIUM 1.9 mg/dL (1.8-2.4); PHOSPHORUS 3.4 mg/dL (2.5-4.9); POTASSIUM 3.9 mmol/L (3.5-5.1)
[2023-09-14 08:00] VITALS: BP 137/50; TEMP 97.5; O2SAT 99
[2023-09-14] MEDS: ASCORBIC ACID 500 MG TABLET PO SCH ×2 (08:30→17:55)
[2023-09-14] MEDS: FERROUS SULFATE (325 MG) 325 MG/TAB TABLET PO SCH (08:30)
[2023-09-14] MEDS: DAKINS QUARTER STRENGTH (0.125%) 480 ML BOTTLE TOP SCH (08:30)
[2023-09-14] MEDS: PANTOPRAZOLE 40 MG TABLET.DR PO SCH (08:30)
[2023-09-14] MEDS: BACLOFEN (10 MG) 10 MG TABLET PO SCH ×3 (08:30→17:55)
[2023-09-14] MEDS: MULTIVIT W/MINERALS 1 TAB TABLET PO SCH (08:30)
[2023-09-14] MEDS: GABAPENTIN 300 MG CAPSULE PO SCH ×2 (08:30→17:55)
[2023-09-14] MEDS: LIDOCAINE 5% (PATCH) 1 EA PATCH TP SCH (08:30)
[2023-09-14] MEDS: ASPIRIN 81 MG TAB.CHEW PO SCH (08:30)
[2023-09-14] MEDS: TOPIRAMATE 25 MG TABLET PO SCH (08:30)
[2023-09-14] MEDS: POLYETHYLENE GLYCOL 3350 17 GM POWD.PACK PO SCH (08:30)
[2023-09-14] MEDS: DULOXETINE HCL 30 MG CAPSULE.DR PO SCH (08:30)
[2023-09-14] MEDS: GLUCERNA SHAKE 237 ML CAN PO SCH ×3 (08:31→17:55)
[2023-09-14] MEDS: PROSOURCE / PROSTAT (PYXIS) 30 ML UDC PO SCH ×3 (08:32→17:55)
[2023-09-14] MEDS: ARGININE/GLUTAMINE/CALCIUM BMB 1 EACH POWD.PACK PO SCH ×2 (08:32→17:55)
[2023-09-14] MEDS: BLOOD SUGAR DIAGNOSTIC 1 EACH STRIP VI SCH ×3 (09:20→18:26)
[2023-09-14 12:00] VITALS: BP 120/84; TEMP 97.7; O2SAT 97
[2023-09-14 16:00] VITALS: BP 117/88; TEMP 98.7; O2SAT 98
== END 2023-09-14 19:45 | DRG 710 ==
LOC: ER 16:07 → TELE1 19:03
PROVIDERS: ADMIT Student in an Organized Health Care Education/Training Program; ATTEND Internal Medicine
PROC: 0QB10ZZ Excision of Sacrum, Open Approach (ICD-10-PCS; principal; 2023-09-08)
PROC: 0QBG0ZZ Excision of Right Tibia, Open Approach (ICD-10-PCS; 2023-09-08)
DX: A41.9 Sepsis, unspecified organism (principal); N17.0 Acute kidney failure with tubular necrosis; R65.21 Severe sepsis with septic shock; G93.41 Metabolic encephalopathy; L89.154 Pressure ulcer of sacral region, stage 4; J15.69 Pneumonia due to other Gram-negative bacteria; E44.0 Moderate protein-calorie malnutrition; L89.894 Pressure ulcer of other site, stage 4; I11.0 Hypertensive heart disease with heart failure; I50.32 Chronic diastolic (congestive) heart failure; E86.0 Dehydration; N39.0 Urinary tract infection, site not specified; D64.9 Anemia, unspecified; Z79.4 Long term (current) use of insulin; E88.09 Other disorders of plasma-protein metabolism, not elsewhere classified; K56.41 Fecal impaction; E87.20 Acidosis, unspecified; E11.9 Type 2 diabetes mellitus without complications; Z89.511 Acquired absence of right leg below knee; Z68.26 Body mass index [BMI] 26.0-26.9, adult; B96.1 Klebsiella pneumoniae [K. pneumoniae] as the cause of diseases classified elsewhere; E11.69 Type 2 diabetes mellitus with other specified complication; M46.28 Osteomyelitis of vertebra, sacral and sacrococcygeal region; K62.89 Other specified diseases of anus and rectum; E11.51 Type 2 diabetes mellitus with diabetic peripheral angiopathy without gangrene
CPT/HCPCS: 36415; 70450-TC; 71045-TC; 72192-TC; 80048-TC; 80076-TC; 80202-TC; 81001; 82962-TC; 83605-TC; 83735-TC; 83880; 84100-TC; 84484-TC; 85025-TC; 85730-TC; 87040-TC; 87086-TC; A4216; A4223; A6403; G0378; J0692; J1650; J1815; J3370; J3490; J7030; J7040; J7050; J7060; P9047; Q9967